=== PATIENT | female | born 1995 | race African-American/Black ===

== ENCOUNTER 2017-10-26 21:05 | Emergency (ER) | payer SELFPAY ==
[~2017-10-26] VITALS: Ht 170.2 cm; Wt 54.4 kg
--- NOTE | 2017-10-26 21:10 | NUR ---
TO BED 14 [facility] C/O BROTHER CALLED 911 FOR AGITATED BEHAVIOR, PATIENT IS NOT ANSWERING ANY QUESTIONS AT THIS TIME. PT KICKING AT TIMES. PLACE PT ON CARDIAC MONITORING, CONTINUOUS POX. ER MD AT [facility] TO EVAL PT WITH ORDERS RECEIVED. WILL CARRY OUT ORDERS.
[2017-10-26] MEDS ORDERED: OLANZAPINE 10 MG VIAL IM ONE ×2 (21:26→21:30)
[2017-10-26 21:30] LABS: BASOPHILS # (AUTO) 0.1 /CMM (0.0-0.2); BASOPHILS % (AUTO) 0.8 % (0.0-2.0); EOSINOPHILS % (AUTO) 0.5 % (0.0-6.0); HEMATOCRIT 43 % (33-45); HEMOGLOBIN 14.4 g/dL (11.5-14.8); LYMPHOCYTES % (AUTO) 22.6 % (20.0-44.0); MEAN CORPUSCULAR HGB CONC 34 g/dl (31.0-36.0); MEAN CORPUSCULAR VOLUME 89 fL (82-100); MONOCYTES # (AUTO) 0.5 /CMM (0.1-1.30); MONOCYTES % (AUTO) 5.7 % (2.0-12.0); NEUTROPHILS # (AUTO) 6.4 /CMM (1.8-8.9); NEUTROPHILS % (AUTO) 70.4 % (43.0-81.0); PLATELET COUNT (AUTO) 311 /CMM (150-450); RDW COEFFICIENT OF VARIATION 12.2 (11.5-15.0); RED BLOOD CELL COUNT(AUTO) 4.81 MIL/uL (4.0-5.2)
[2017-10-26 21:46] LABS: ACETAMINOPHEN 0 ug/ml (10-30); ALANINE AMINOTRANSFERASE 26 U/L (12-78); ALBUMIN 3.9 g/dL (3.4-5.0); ALCOHOL, BLOOD < 3 mg/dL (0-0); ALKALINE PHOSPHATASE 58 U/L (46-116); ASPARTATE AMINOTRANSFERASE 33 U/L (15-37); BILIRUBIN,DIRECT 0.1 mg/dL (0.0-0.2); BILIRUBIN,TOTAL 0.6 mg/dL (0.2-1.0); CALCIUM, SERUM 9.4 mg/dL (8.5-10.1); CARBON DIOXIDE 25 mmol/L (21-32); CHLORIDE 104 mmol/L (98-107); CREATININE 1.4 mg/dL (0.6-1.3); GLUCOSE 123 mg/dL (74-106); POTASSIUM 3.3 mmol/L (3.5-5.1); SALICYLATE 0.9 mg/dL (2.8-20.0); SODIUM SERUM 138 mmol/L (136-145); TOTAL PROTEIN, SERUM 8.1 g/dL (6.4-8.2); UREA NITROGEN, BLOOD 20 mg/dL (7-18)
--- NOTE | 2017-10-26 21:47 | NUR ---
FEMALE TERE ALCANTARA AT BEDSIDE TO DO I&O CATH FOR URINE SAMPLE.
--- NOTE | 2017-10-26 21:50 | NUR ---
PT REFUSE I&O CATH AND AGREED TO USE BEDPAN.
[2017-10-26 21:58] LABS: THYROID STIMULATING HORMONE 1.116 uIU/mL (0.358-3.74)
--- NOTE | 2017-10-26 22:00 | NUR ---
URINE SAMPLE COLLECTED AND SENT TO LAB.
[2017-10-26 22:15] LABS: APPEARANCE,URINE SL CLOUDY (CLEAR); BILIRUBIN,URINE 1+ (NEGATIVE); BLOOD, URINE NEGATIVE Ery/uL (NEGATIVE); COLOR,URINE YELLOW (YELLOW); KETONES,URINE 2+ (NEGATIVE); LEUKOCYTE ESTERASE ,URINE NEGATIVE (NEGATIVE); NITRITE, URINE NEGATIVE (NEGATIVE); PROTEIN,URINE 2+ mg/dl (NEGATIVE); UGLUCOSE NEGATIVE (NEGATIVE); UROBILINOGEN,URINE 0.2 EU/dL (0.2)
[2017-10-26 22:26] LABS: BACTERIA,URINE Moderate /HPF (None Seen); MUCUS,URINE Moderate /LPF (None Seen); SQUAMOUS EPITHELIAL CELL,UR Few /HPF (None Seen)
[2017-10-26 22:27] LABS: RBC,URINE 0-2 /HPF (0-2)
--- NOTE | 2017-10-26 22:39 | NUR ---
PT ASLEEP, NO ACUTE DISTRESS NOTED, RESPE DUARTE AND UNLABORED. CALL LIGHT WITHIN REACH. WILL CONTINUE TO MONITOR PT CLOSELY.
--- NOTE | 2017-10-27 00:20 | NUR ---
PT CALM AND COOPERATIVE AT THIS TIME. BILATERAL WRIST RESTRAINTS REMOVEED. PT AWAITING PSYCH EVAL.
--- NOTE | 2017-10-27 00:30 | NUR ---
MARLENA BASILIOW AT BEDSIDE TO NAZ FERRARI.
--- NOTE | 2017-10-27 02:22 | NUR ---
PT ASLEEP, NO ACUTE DISTRESS NOTED, RESPE DUARTE AND UNLABORED. CALL LIGHT WITHIN REACH. WILL CONTINUE TO MONITOR PT CLOSELY.
--- NOTE | 2017-10-27 03:00 | NUR ---
PT BROTHER AT BEDSIDE TO TAKE PT HOME. PT AAOX4 NO ACUTE DISTRESS NOTED, RESP EVEN AND UNLABORED. PT CALM AND COOPERATIVE AT THIS TIME. PT DENIES IS OR HI AT THIS TIME.
[2017-10-27 03:01] VITALS: BP 127/75
== END 2017-10-27 03:02 | disposition home or self-care (01) ==
LOC: ER 21:07
DX: Z04.6 Encounter for general psychiatric examination, requested by authority (principal); F29 Unspecified psychosis not due to a substance or known physiological condition; F90.9 Attention-deficit hyperactivity disorder, unspecified type
CPT/HCPCS: 36415; 80048; 80076; 80305; 80329; 81001; 84443; 84703; 85025; 87086; 96372; 99284; A4606; G0480 ×2; J3490; Z7610; 81000-TC

== ENCOUNTER 2017-11-04 01:01 | Emergency (ER) | payer SELFPAY ==
[~2017-11-04] VITALS: Ht 172.7 cm; Wt 52.2 kg
--- NOTE | 2017-11-04 01:07 | NUR ---
PT TO ER BED 11. BIBSELF C/O LLQ ABD SHARP PAIN EALIER TODAY. PER RA PT FIELD BP 96/68. PT PLACED ON PARTY HOST. VSS/RESP EVEN UNLABORED/NAD NOTED/SKIN WARM AND DRY/DENIES N-V-D/AFEBRILE/AOX4. AWAITING MD CHILDS.
--- NOTE | 2017-11-04 01:10 | NUR ---
AT BEDSIDE FOR EVAL.
--- NOTE | 2017-11-04 01:15 | NUR ---
URINE SPECIMEN OBTAINED AND SENT TO THE LAB.
[2017-11-04 01:53] LABS: APPEARANCE,URINE CLEAR (CLEAR); BILIRUBIN,URINE NEGATIVE (NEGATIVE); BLOOD, URINE NEGATIVE Ery/uL (NEGATIVE); COLOR,URINE YELLOW (YELLOW); KETONES,URINE NEGATIVE (NEGATIVE); LEUKOCYTE ESTERASE ,URINE NEGATIVE (NEGATIVE); NITRITE, URINE NEGATIVE (NEGATIVE); PROTEIN,URINE NEGATIVE (NEGATIVE); UGLUCOSE NEGATIVE (NEGATIVE); UROBILINOGEN,URINE 0.2 EU/dL (0.2)
--- NOTE | 2017-11-04 02:31 | NUR ---
Patient discharged to home in stable condition. Written and verbal after care instructions given. Patient verbalizes understanding of instruction. Patient ambulatory with a steady gait.
[2017-11-04 02:32] VITALS: BP 95/71
== END 2017-11-04 02:33 | disposition home or self-care (01) ==
LOC: ER 01:02
DX: K59.00 Constipation, unspecified (principal)
CPT/HCPCS: 74018; 81000-TC; 84703-TC; A4606; Z7610